=== PATIENT | female | born 1990 | race Two or more races ===

== ENCOUNTER 2019-12-25 10:44 | Outpatient (CLI) | payer OTHER | END 2019-12-25 10:50 | disposition home or self-care (01) | LOC: LAB 10:44 | PROVIDERS: ATTEND Obstetrics & Gynecology | DX: O09.72 Supervision of high risk pregnancy due to social problems, second trimester (principal) ==

== ENCOUNTER 2020-01-21 08:33 | Outpatient (CLI) | payer OTHER | END 2020-01-21 08:49 | disposition home or self-care (01) | LOC: LAB 08:33 | PROVIDERS: ATTEND Obstetrics & Gynecology | DX: Z34.83 Encounter for supervision of other normal pregnancy, third trimester (principal) ==

== ENCOUNTER 2020-03-20 10:44 | Inpatient (IN) | payer OTHER ==
[~2020-03-20] VITALS: Ht 162.6 cm; Wt 61.2 kg
[2020-04-11] MEDS ORDERED: PRENATAL + DHA1 EAC1 PO (09:09)
== END 2020-04-12 13:31 | DRG 807 ==
LOC: LDR 04-10 08:48 → SURG-SUITE 04-10 08:48 → OB/GYN 04-10 10:57 → SURG-SUITE 04-10 11:14 → LDR 04-13 11:30
PROVIDERS: ADMIT Obstetrics & Gynecology Maternal & Fetal Medicine; ATTEND Obstetrics & Gynecology Maternal & Fetal Medicine
PROC: 10E0XZZ Delivery of Products of Conception, External Approach (ICD-10-PCS; principal; 2020-04-10)
PROC: 0HQ9XZZ Repair Perineum Skin, External Approach (ICD-10-PCS; 2020-04-10)
PROC: 4A0HXFZ Measurement of Products of Conception, Cardiac Rhythm, External Approach (ICD-10-PCS; 2020-04-10)
DX: O70.1 Second degree perineal laceration during delivery (principal); Z37.0 Single live birth; Z3A.39 39 weeks gestation of pregnancy; Z20.828 Contact with and (suspected) exposure to other viral communicable diseases

== ENCOUNTER 2023-01-21 21:58 | Inpatient (IN) | payer OTHER ==
[~2023-01-21] VITALS: Ht 162.6 cm; Wt 62.6 kg
[~2023-01-21 21:58] MED LIST: PRENATAL + DHA1 EAC1 PO
[2023-01-21] MEDS ORDERED: IRON236 MG (22:12)
== END 2023-01-23 15:01 | disposition home or self-care (01) | DRG 833 ==
LOC: LDR 21:58 → O/R 01-22 15:13 → LDR 01-22 15:14
PROVIDERS: ADMIT Obstetrics & Gynecology Maternal & Fetal Medicine; ATTEND Obstetrics & Gynecology Maternal & Fetal Medicine
PROC: 4A1HXCZ Monitoring of Products of Conception, Cardiac Rate, External Approach (ICD-10-PCS; principal; 2023-01-21)
DX: O47.03 False labor before 37 completed weeks of gestation, third trimester (principal); Z3A.34 34 weeks gestation of pregnancy; Z20.822 Contact with and (suspected) exposure to COVID-19

== ENCOUNTER 2023-01-28 11:44 | Outpatient (CLI) | payer OTHER ==
[~2023-01-28 11:44] MED LIST changes: +IRON236 MG
== END 2023-01-28 13:10 | disposition home or self-care (01) ==
LOC: NST 11:44
PROVIDERS: ATTEND Obstetrics & Gynecology Gynecology
DX: Z34.83 Encounter for supervision of other normal pregnancy, third trimester (principal)

== ENCOUNTER 2023-02-18 09:55 | Outpatient (CLI) | payer OTHER | END 2023-02-18 10:21 | disposition home or self-care (01) | LOC: NST 09:55 | PROVIDERS: ATTEND Obstetrics & Gynecology Maternal & Fetal Medicine | DX: Z34.83 Encounter for supervision of other normal pregnancy, third trimester (principal) ==

== ENCOUNTER 2023-02-18 12:38 | Inpatient (IN) | payer OTHER ==
[~2023-02-18] VITALS: Ht 162.6 cm; Wt 62.6 kg
[2023-02-24] MEDS ORDERED: DOXYLAMINE-PYR1 EACH (14:30)
== END 2023-02-26 13:32 | disposition home or self-care (01) | DRG 807 ==
LOC: LDR 02-24 00:44 → OB/GYN 02-24 00:44
PROVIDERS: ADMIT Obstetrics & Gynecology Maternal & Fetal Medicine; ATTEND Obstetrics & Gynecology Maternal & Fetal Medicine
PROC: 10E0XZZ Delivery of Products of Conception, External Approach (ICD-10-PCS; principal; 2023-02-24)
PROC: 0KQM0ZZ Repair Perineum Muscle, Open Approach (ICD-10-PCS; 2023-02-24)
PROC: 4A1HXCZ Monitoring of Products of Conception, Cardiac Rate, External Approach (ICD-10-PCS; 2023-02-24)
DX: O70.1 Second degree perineal laceration during delivery (principal); Z37.0 Single live birth; Z3A.40 40 weeks gestation of pregnancy; Z20.822 Contact with and (suspected) exposure to COVID-19

== ENCOUNTER → 2023-02-21 | Outpatient (CLI) | payer OTHER ==
[~2023-02-21] MED LIST changes: +DOXYLAMINE-PYR1 EACH
== END | disposition home or self-care (01) ==
LOC: NST 10:29
PROVIDERS: ATTEND Obstetrics & Gynecology Gynecology
DX: Z34.83 Encounter for supervision of other normal pregnancy, third trimester (principal)